=== PATIENT | male | born 1985 | race Caucasian/White ===

== ENCOUNTER 2019-12-01 12:31 | Outpatient (CLI) | payer OTHER, SELFPAY ==
--- NOTE | 2019-12-01 12:43 | MR_ITS ---
WS: [id number] MRI of the right knee, 12/01/2019 Clinical Data: CHRONIC PAIN RIGHT KNEE Comparison: None. Findings: The anterior and posterior cruciate ligaments are intact without tear. The medial and lateral meniscu s show no tears. There are no bone bruises present. There are no osteochondral fractures. The medial and lateral collateral ligaments are intact without strain or tear. The quadriceps tendon and patellar tendon show no abnormalities. The patella is intact without displacement or chondromalac ia. No Hurtado's cyst is seen. MR/MR knee RT wo con* [id number] Impression: 1. Negative for ligamentous or meniscal tears. 2. Negative for bone bruise or osteochondral fracture.
== END 2019-12-01 12:32 | disposition home or self-care (01) ==
LOC: RADSHAW 12:36
PROVIDERS: Family Provider Family Medicine; PCP Family Medicine; Visit Provider Specialist
DX: M25.561 Pain in right knee (principal)
CPT/HCPCS: 73721

== ENCOUNTER 2020-01-03 16:53 | Outpatient (RCR) | payer OTHER, SELFPAY | END 2020-01-20 23:59 | disposition home or self-care (01) | LOC: SPT 16:53 | PROVIDERS: Family Provider Family Medicine; PCP Family Medicine; Referring Provider Specialist; Visit Provider Specialist | DX: M25.561 Pain in right knee (principal) | CPT/HCPCS: 97110; 97161 ==

== ENCOUNTER 2020-01-21 06:00 | Outpatient (RCR) | payer OTHER, SELFPAY | END 2020-02-20 23:59 | disposition home or self-care (01) | LOC: SPT 06:00 | PROVIDERS: Family Provider Family Medicine; PCP Family Medicine; Referring Provider Specialist; Visit Provider Specialist | DX: M25.561 Pain in right knee (principal) | CPT/HCPCS: 97110 ==

== ENCOUNTER 2020-01-26 15:58 | Outpatient (CLI) | payer OTHER, SELFPAY ==
--- NOTE | 2020-01-26 16:45 | MRR_ITS ---
PROCEDURE INFORMATION: Exam: MR Head Without Contrast Exam date and time: 01/26/2020 5:59 PM Age: 34 years old Clinical indication: Other: Headaches; Additional info: Tbi TECHNIQUE: Imaging protocol: MR of the head without contrast. COMPARISON: No relevant prior studies available. FINDINGS: Brain: There is no evidence of an acute ischemic event. There is no evidence of a focal mass. There is no evidence of intracranial hemorrhage. No abnormal extra-axial fluid collections are identified. There is no evidence of a focal mass. No white matter signal abnormality is seen. The midbrain and [place] are normal. Midline posterior fossa arachnoid cyst incidentally noted. Ventricles: Normal. No ventriculomegaly. Sinuses: There is mild sinus mucosal disease, with no air-fluid level identified. Mastoid air cells: There is no mastoid effusion detected. Orbits: The orbits are normal. Sella: The pituitary gland and sella are normal. MR/MR head wo con* [id number] IMPRESSION: 1. No acute ischemia, mass, or white matter abnormality identified. 2. Mild sinus disease.
== END 2020-01-26 15:59 | disposition home or self-care (01) ==
LOC: RADSHAW 15:58
PROVIDERS: Family Provider Family Medicine; PCP Family Medicine; Visit Provider Specialist
DX: J32.9 Chronic sinusitis, unspecified (principal); Z87.820 Personal history of traumatic brain injury
CPT/HCPCS: 70551

== ENCOUNTER → 2020-04-10 15:17 | Outpatient (BNVA) | payer OTHER, SELFPAY | PROVIDERS: Family Provider Family Medicine; PCP Family Medicine; Visit Provider Specialist | DX: G47.419 Narcolepsy without cataplexy (principal); F07.81 Postconcussional syndrome; H53.19 Other subjective visual disturbances; G43.711 Chronic migraine without aura, intractable, with status migrainosus | CPT/HCPCS: 99214 ==

== ENCOUNTER → 2020-07-01 15:11 | Outpatient (BNVA) | payer OTHER, SELFPAY | PROVIDERS: Family Provider Family Medicine; PCP Family Medicine; Visit Provider Specialist | DX: F07.81 Postconcussional syndrome (principal); G47.429 Narcolepsy in conditions classified elsewhere without cataplexy; R29.90 Unspecified symptoms and signs involving the nervous system; M79.7 Fibromyalgia | CPT/HCPCS: 99214 ==

== ENCOUNTER 2020-11-11 20:00 | Outpatient (CLI) | payer OTHER, SELFPAY | END 2020-11-11 20:01 | disposition home or self-care (01) | LOC: SLEEP 11-12 08:55 | PROVIDERS: Family Provider Family Medicine; PCP Family Medicine; Visit Provider Family Medicine | DX: R06.83 Snoring (principal); R53.83 Other fatigue; G47.33 Obstructive sleep apnea (adult) (pediatric) | CPT/HCPCS: 95810 ==

== ENCOUNTER → 2020-12-25 09:35 | Outpatient (BNVA) | payer OTHER, SELFPAY | PROVIDERS: Family Provider Family Medicine; PCP Family Medicine; Visit Provider Specialist | DX: G47.429 Narcolepsy in conditions classified elsewhere without cataplexy (principal); M79.7 Fibromyalgia; M25.561 Pain in right knee; G89.29 Other chronic pain; E55.9 Vitamin D deficiency, unspecified | CPT/HCPCS: 99214 ==

== ENCOUNTER 2021-01-29 20:00 | Outpatient (CLI) | payer OTHER, SELFPAY | END 2021-01-29 20:01 | disposition home or self-care (01) | LOC: SLEEP 01-30 09:21 | PROVIDERS: Family Provider Family Medicine; PCP Family Medicine; Visit Provider Family Medicine | DX: G47.33 Obstructive sleep apnea (adult) (pediatric) (principal) | CPT/HCPCS: 95811 ==

== ENCOUNTER → 2021-07-01 08:03 | Outpatient (BNVA) | payer OTHER, SELFPAY | PROVIDERS: Family Provider Family Medicine; PCP Family Medicine; Visit Provider Specialist | DX: G47.429 Narcolepsy in conditions classified elsewhere without cataplexy (principal); G47.33 Obstructive sleep apnea (adult) (pediatric); M51.9 Unspecified thoracic, thoracolumbar and lumbosacral intervertebral disc disorder; Z87.891 Personal history of nicotine dependence | CPT/HCPCS: 99213; 99214 ==

== ENCOUNTER → 2021-09-25 10:54 | Outpatient (BNVA) | payer OTHER, SELFPAY | PROVIDERS: Family Provider Family Medicine; PCP Family Medicine; Visit Provider Specialist | DX: G47.33 Obstructive sleep apnea (adult) (pediatric) (principal); G47.429 Narcolepsy in conditions classified elsewhere without cataplexy; H53.19 Other subjective visual disturbances; F07.81 Postconcussional syndrome | CPT/HCPCS: 99214 ==

== ENCOUNTER → 2022-03-25 09:14 | Outpatient (BNVA) | payer OTHER, SELFPAY | PROVIDERS: Family Provider Family Medicine; PCP Family Medicine; Visit Provider Specialist | DX: G43.711 Chronic migraine without aura, intractable, with status migrainosus; H53.19 Other subjective visual disturbances; G47.33 Obstructive sleep apnea (adult) (pediatric); G47.429 Narcolepsy in conditions classified elsewhere without cataplexy | CPT/HCPCS: 99214 ==

== ENCOUNTER 2022-04-30 07:09 | Outpatient (CLI) | payer OTHER, SELFPAY ==
--- NOTE | 2022-04-30 07:15 | MR_ITS ---
WS: [id number] MRI HEAD WITHOUT CONTRAST TECHNIQUE: Sagittal T1, T2 axial, T2 axial FLAIR, axial and coronal T1 images, axial susceptibility w eighted imaging, axial diffusion weighted images, and coronal T2 images were obtained. CLINICAL INFORMATION: R51.9 - Headache, unspecified COMPARISON: February 15, 2020 FINDINGS: No evidence of restricted diffusion to suggest acute ischemia. Ventricular system and basal cisterns are patent. Normal mcnally-white differentiation. No suspicious intracranial signal abnormalities. Benig n incidental megacisterna magna. Normal vascular flow voids at the skull base. No extra axial fluid c ollections. No evidence of mass or mass effect. Mild mucosal thickening ethmoid air cells. Mastoid ai r cells are well aerated. No hemosiderin on susceptibly weighted images. Temporal lobes and hippocampal formations are normal i n appearance. Normal optic chiasm and pituitary infundibulum. Normal cavernous sinuses and Meckel's c ave. MR/MR head wo con* [id number] IMPRESSION: 1. No evidence of restricted diffusion to suggest acute ischemia. 2. No suspicious intracranial signal abnormalities. Normal mcnally-white differen tiation. 3. No hemosiderin on susceptibly weighted images. 4. Temporal lobes and hippocampal formations are normal in appearance. 5. No acute intracranial findings and no changes since May 11, 2020
== END 2022-04-30 07:10 | disposition home or self-care (01) ==
LOC: RAD 07:09
PROVIDERS: PCP Family Medicine; Visit Provider Specialist
DX: R51.9 Headache, unspecified (principal)
CPT/HCPCS: 70551

== ENCOUNTER 2023-04-16 09:39 | Emergency (ER) | payer OTHER, SELFPAY ==
[2023-04-16] VITALS (15 sets, daily range): BP systolic 108–142; BP diastolic 58–79; PULSE 65–66; RESP 16–18; TEMP 36.8; O2SAT 97–100; BMI 25.4
[2023-04-16 11:19] LABS: Basophils % 0.6 %; Eosinophils # 0.1 10^3/uL (0.0-0.8); Eosinophils % 1.7 %; Hematocrit 37.4 % (42.0-52.0); Lymphocytes # 1.1 10^3/uL (0.8-4.8); Lymphocytes % 31.4 %; Mean Corpuscular HGB Conc 34.8 g/dL (30.0-36.0); Mean Corpuscular Hemoglobin 30.8 pg (28.0-34.0); Mean Corpuscular Volume 88.6 fl (80-94); Mean Platelet Volume 9.5 fL (7.4-10.4); Monocytes # 0.3 10^3/uL (0.2-0.9); Monocytes % 7.8 %; Neutrophils # 2.08 10^3/uL (1.8-7.7); Neutrophils % 58.2 %; Nucleated Red Blood Cells % 0 %; Platelet Count 196 10^3/cmm (130-400); Red Blood Count 4.22 10^6/uL (4.1-5.3); Red Cell Distribution Width 12.1 % (12.1-15.1); White Blood Count 3.6 10^3/uL (4.0-10.0)
[2023-04-16 11:44] LABS: Alanine Aminotransferase 19 U/L (0-41); Albumin Level 4.4 g/dL (3.5-5.2); Alkaline Phosphatase 82 U/L (40-130); Anion Gap 12.7 (5-19); Aspartate Amino Transferase 17 U/L (0-40); Blood Urea Nitrogen 7 mg/dL (6-20); Calcium 8.8 mg/dL (8.5-10.5); Carbon Dioxide 29 mmol/L (22-29); Chloride 104 mmol/L (98-107); Glucose 73 mg/dL (65-115); Magnesium 2.1 mg/dL (1.7-2.3); Osmolality Calculated 291 mOsm/kg (285-295); Potassium 3.7 mmol/L (3.5-5.1); Sodium 142 mmol/L (136-145); Total Bilirubin 0.5 mg/dL (0.15-1.2); Total Protein 6.4 g/dL (6.6-8.7)
[2023-04-16] MEDS: sodium chloride 0.9% 1,000 ML 999 ML IV (12:10)
[2023-04-16 13:43] LABS: Add Urine Microscopic? NO; Charge for UA Resulting for Rev
[2023-04-16 14:07] LABS: Bilirubin Urine Neg (Negative); Blood Urine Neg (Negative); Glucose Urine UA Norm (Normal); Ketones Urine Negative (Negative); Leukocyte Esterase Urine Negative (Negative); Nitrate Urine Negative (Negative); Protein Urine Neg (Negative); Urine Appearance Clear (CLEAR); Urine Color Yellow (Yellow); Urobilinogen Urine Norm (Negative); pH Urine 6.5 (5-7)
--- NOTE | 2023-04-16 14:10 | ED_ITS ---
HPI - Nausea/Vomiting/Diarrhea General: Chief complaint: Nausea/Vomiting/Diarrhea Stated complaint: abd pain/N/V/D [facility] Time Seen by Provider: 04/16/23 11:45 Source: patient Mode of arrival: ambulatory Limitations: no limitations History of Present Illness: This 37-year-old male with a history of chronic migraine, fibromyalgia and obstructive sleep apnea presents to the ER with chronic diarrhea and intermittent vomiting that has been going on for about 6 months. Yesterday for instance, he had 7 bowel movements that were watery and not of large volumes. There is no blood in stool. He has already had 3 bowel movements today. He has vomiting that is sporadic. Patient has no fever, chest pain or shortness of breath. He reports that he has had an unintentional weight loss of 10 pounds in the last 2 weeks. Alert Associated nausea: Yes Associated symtoms: Reports nausea; Denies change in vision, chest pain, dysuria or headache(s) Review of Systems Const: Denies: chills, body aches or change in appetite Eyes: Denies: change in vision or eye discharge ENMT: Denies: throat pain or dental pain Card: Denies: chest pain or lightheadedness GI: Reports: nausea, vomiting (chronic) and diarrhea (chronic) : Denies: dysuria Musc: Denies: neck pain or back pain Neuro: Denies: headache(s) or weakness in extremities Psych: Denies: depression Dm/Lymph: Denies: easy bruising All/Imm: Denies: urticaria, tongue swelling or facial swelling PFSH ED PFSH: Social History Smoking and tobacco status: never smoked Alcohol intake: current Alcohol intake frequency: holidays/special occasions only Substance/Drug Use: never Physical Exam Const: COMMON NORMALS: no acute distress, patient oriented x3, no limitations and alert HENMT: COMMON NORMALS: normocephalic HEAD & SCALP: normocephalic Eye: COMMON NORMALS: EOMs intact bilaterally Neck/C-Spine: COMMON NORMALS: full ROM and supple Chest: COMMONS NORMALS: normal inspection of the chest Resp: COMMON NORMALS: normal respiratory effort, No retractions, No use of accessory muscles and clear to auscultation bilaterally AUSCULTATION: clear to auscultation bilaterally Cardio: COMMON NORMALS: regular rate, regular rhythm and No murmurs present (Cardio) RATE: regular rate RHYTHM: regular rhythm GI: COMMON NORMALS: Normal to inspection, nondistended, normoactive bowel sounds present and non-tender : COMMON NORMALS: Yes no CVA tenderness BLADDER/KIDNEY EXAM: Yes no CVA tenderness Back/Pelvis: COMMON NORMALS: no CVA tenderness and no thoracic nor lumbar tenderness Extremity: GENERAL: Yes normal exam except as noted Neuro: COMMON NORMALS: patient oriented x3 and no focal motor deficits S ENSORIUM/ORIENTATION: Yes alert Psych: COMMON NORMALS: mental status grossly normal and cooperative Course Reevaluation(s): Reevaluation #1: Patient remained stable throughout his stay. When I went in to discuss lab findings with patient, he told me that [facility] of the gallbladder. They want the ultrasound done. Time: 15:43 Vital Signs: Vital signs: Vital Signs Temperature 98.3 F 04/16/23 09:52 Pulse Rate 65 04/16/23 09:52 Respiratory Rate 18 04/16/23 12:43 Blood Pressure 117/77 04/16/23 18:00 Pulse Oximetry 97 04/16/23 17:30 Oxygen Delivery Me thod Room Air 04/16/23 12:43 MDM - Nausea/Vomiting/Diarrhea Medical Decision Making Medical decision making: Patient presents with chronic diarrhea and vomiting. On exam, he is clinically stable with an unremarkable exam. Completed blood tests including abdominal ultrasound are unremarkable too. Stool tests ordered. Patient will benefit from an outpatient colonoscopy which his primary care physician is in the process of setting up. He was advised to maintain adequate fluid intake and to follow-up with his primary care provider. Reasons to return were discussed. Lab Data 04/16/23 11:12 04/16/23 11:12 Radiology Impressions Abdomen Ultrasound 04/16/23 15:41 IMPRESSION: 1. No acute findings. 2. Negative liver examination. 3. Negative gallbladder examination Laboratory Results WBC 3.6 10^3/uL (4.0-10.0) L 04/16/23 11:12 RBC 4.22 10^6/uL (4.1-5.3) 04/16/23 11:12 Hgb 13.0 g/dL (11.7-16.6) 04/16/23 11:12 Hct 37.4 % (42.0-52.0) L 04/16/23 11:12 MCV 88.6 fl (80-94) 04/16/23 11:12 MCH 30.8 pg (28.0-34.0) 04/16/23 11:12 MCHC 34.8 g/dL (30.0-36.0) 04/16/23 11:12 RDW 12.1 % (12.1-15.1) 04/16/23 11:12 Plt Count 196 10^3/cmm (130-400) 04/16/23 11:12 MPV 9.5 fL (7.4-10.4) 04/16/23 11:12 Neut % (Auto) 58.2 % 04/16/23 11:12 Lymph % (Auto) 31.4 % 04/16/23 11:12 [place] % (Auto) 7.8 % 04/16/23 11:12 Eos % (Auto) 1.7 % 04/16/23 11:12 Baso % (Auto) 0.6 % 04/16/23 11:12 Neut # (Auto) 2.08 10^3/uL (1.8-7.7) 04/16/23 11:12 Lymph # (Auto) 1.1 10^3/uL (0.8-4.8) 04/16/23 11:12 [place] # (Auto) 0.3 10^3/uL (0.2-0.9) 04/16/23 11:12 Eos # (Auto) 0.1 10^3/uL (0.0-0.8) 04/16/23 11:12 Baso # (Auto) 0.0 10^3/uL (0.0-0.1) 04/16/23 11:12 Nucleated RBC % (auto) 0 % 04/16/23 11:12 Nucleated RBCs # 0.0 /100WBC 04/16/23 11:12 Sodium 142 mmol/L (136-145) 04/16/23 11:12 Potassium 3.7 mmol/L (3.5-5.1) 04/16/23 11:12 Chloride 104 mmol/L (98-107) 04/16/23 11:12 Carbon Dioxide 29 mmol/L (22-29) 04/16/23 11:12 Anion Gap 12.7 (5-19) 04/16/23 11:12 BUN 7 mg/dL (6-20) 04/16/23 11:12 Creatinine 0.8 mg/dL (0.7-1.2) 04/16/23 11:12 GFR Calculation 110.0 mL/min (90-130) 04/16/23 11:12 Glucose 73 mg/dL (65-115) 04/16/23 11:12 Calculated Osmolality 291 mOsm/kg (285-295) 04/16/23 11:12 Calcium 8.8 mg/dL (8.5-10.5) 04/16/23 11:12 Magnesium 2.1 mg/dL (1.7-2.3) 04/16/23 11:12 Total Bilirubin 0.5 mg/dL (0.15-1.2) 04/16/23 11:12 AST 17 U/L (0-40) 04/16/23 11:12 ALT 19 U/L (0-41) 04/16/23 11:12 Alkaline Phosphatase 82 U/L (40-130) 04/16/23 11:12 Total Protein 6.4 g/dL (6.6-8.7) L 04/16/23 11:12 Albumin 4.4 g/dL (3.5-5.2) 04/16/23 11:12 Globulin 2.0 g/dL (1.3-4.6) 04/16/23 11:12 Urine Color Yellow (Yellow) 04/16/23 13:38 Urine Appearance Clear (CLEAR) 04/16/23 13:38 Urine pH 6.5 (5-7) 04/16/23 13:38 Ur Specific Fabius 1.010 (1.005-1.030) 04/16/23 13:38 Urine Protein Neg (Negative) 04/16/23 13:38 Urine Glucose (UA) Norm (Normal) 04/16/23 13:38 Urine Ketones Negative (Negative) 04/16/23 13:38 Urine Blood Neg (Negative) 04/16/23 13:38 Urine Nitrate Negative (Negative) 04/16/23 13:38 Urine Bilirubin Neg (Negative) 04/16/23 13:38 Urine Urobilinogen Norm mg/dL (Negative) 04/16/23 13:38 Ur Leukocyte Esterase Negative (Negative) 04/16/23 13:38 Urine Opiates Screen Negative ng/mL (Negative) 04/16/23 13:38 Ur Barbiturates Screen Negative ng/mL (Negative) 04/16/23 13:38 Ur Phencyclidine Scrn Negative ng/mL (Negative) 04/16/23 13:38 Ur Amphetamines Screen Negative ng/mL (Negative) 04/16/23 13:38 U Benzodiazepines Scrn Negative ng/mL (Negative) 04/16/23 13:38 Urine Cocaine Screen Negative ng/mL (Negative) 04/16/23 13:38 U Marijuana (THC) Screen Positive ng/mL (Negative) H 04/16/23 13:38 Discharge Plan Discharge Patient Disposition: Home Clinical Impression: Chronic diarrhea Condition: Stable Prescriptions: No Action bupropion HCl 150 mg tablet extended release 24 hr 150 mg PO QAM cholecalciferol (vitamin D3) 250 mcg (10,000 unit) capsule 50,000 unit PO DAILY Qty: 8 0RF amitriptyline 25 mg tablet 25 mg PO DAILY Qty: 30 5RF modafinil [Provigil] 200 mg tablet 400 mg PO ONCE Qty: 120 5RF Rx Instructions: 400 mg in the morning. 90 day supply with one refill ok Discharge Orders: Discharge ED (Routine); Ordered 04/16/23 Ordered By: Brisa Stiles Referrals: Celeste Mane MD [Primary Care Provider] - Discharge Diet: Usual diet Discharge Activity: Resume usual activity Patient Instructions: Opioid Safety, Pain Management Activity Restrictions/Additional Instructions: You may take [id number] Imodium as needed for diarrhea. Maintain adequate fluid intake. Follow-up with your primary care provider who will set you up for an outpatient colonoscopy. Return with new or worsening symptoms. 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
[2023-04-16 14:25] LABS: Amphetamines Screen Urine Negative (Negative); Barbiturates Screen Urine Negative (Negative); Benzodiazepines Screen Urine Negative (Negative); Cocaine Screen Urine Negative (Negative); Opiate Screen Urine Negative (Negative); PCP Screen Urine Negative (Negative); THC Screen Urine Positive (Negative)
--- NOTE | 2023-04-16 15:41 | USR_ITS ---
PROCEDURE INFORMATION: Exam: US Abdomen Complete Exam date and time: 04/16/2023 4:20 PM Age: 37 years old Clinical indication: Abnormal findings; Abnormal radiologic finding of the abdomen; Radiologic exam and body structure: CT; Additional info: Chronic diarrhea. Assess liver and gall bladder TECHNIQUE: Imaging protocol: Real-time ultrasound of the abdomen with image documentation. Complete exam. COMPARISON: CT lumbar spine w con [id number] 08/10/2017 10:02 AM FINDINGS: Liver: Normal. No mass. Liver span is 16 cm Gallbladder: Normal. No gallstones. There is no gallbladder wall thickening. Biliary ducts: Normal. No stones. No dilation. 3.8 mm Pancreas: Visualized pancreas is unremarkable. Right kidney: Normal. No mass. No hydronephrosis. 12.4 cm x 5 cm x 5.6 cm Left kidney: Normal. No mass. No hydronephrosis. 12.4 cm x 4.8 cm x 5.5 cm Spleen: Normal. No splenomegaly. 11.49 cm Aorta: Normal. No aneurysm. Inferior vena cava: Normal. US/US abdomen complete* [id number] IMPRESSION: 1. No acute findings. 2. Negative liver examination. 3. Negative gallbladder examination
[2023-04-20 14:34] LABS: Lyme AB Screen <0.90 index
[2023-04-21 13:04] LABS: Clostridium Difficile PCR NOT DETECTED (NOT DETECTED)
[2023-04-21 19:09] LABS: RMSF IGG NOT DETECTED; RMSF IGM NOT DETECTED
[2023-04-24 21:09] LABS: E. Chaffeensis AB IGG <1:64; E. Chaffeensis AB IGM <1:20
[2023-04-29 11:50] LABS: Miscellaneous Test SEE COMMENTS
== END 2023-04-16 18:43 | disposition home or self-care (01) ==
PROVIDERS: Emergency Medicine; Emergency Provider Family Medicine; PCP Family Medicine
DX: K52.9 Noninfective gastroenteritis and colitis, unspecified (principal)
CPT/HCPCS: 76700; 80053; 80306; 81003; 83735; 85025; 86618; 86666; 86757; 87045; 87177; 87209; 87427; 87449; 87493; 87506; 96360; 99284; J7030

== ENCOUNTER 2023-05-21 07:51 | Outpatient (CLI) | payer OTHER, SELFPAY ==
--- NOTE | 2023-05-21 07:57 | NM_ITS ---
WS: [id number] NUCLEAR MEDICINE HIDA SCAN WITH GALLBLADDER EJECTION FRACTION HISTORY: Epigastric ABDOMINAL PAIN AND DIARRHEA COMPARISON: 04/16/2023 TECHNIQUE: The patient was intravenously injected with 7.8 mCi of TC99m Mebrofenin. Immediate imaging over the right upper quadrant was followed by 5 minute image and additional images for a total of 60 minutes. Normal uptake of radiotracer throughout the liver. Activity identified in the gallbladder at 15 minutes and well distended by 60 minutes. Activity in the proximal small bowel was seen by 20 minutes. Good washout of the radiotracer from the liver by 60 minutes. The patient then drank 8 ounces of Ensure Plus. Ejection fraction at 60 minutes was 87%. Normal GB ej ection fraction is 35-75%. Post fatty meal symptoms: None. NM/NM hepatobiliary w phar* [id number] IMPRESSION: 1. Normal HIDA scan. 2. Normal gallbladder ejection fraction.
== END 2023-05-21 07:52 | disposition home or self-care (01) ==
LOC: RAD 07:52
PROVIDERS: PCP Family Medicine; Visit Provider Family Medicine
DX: R19.7 Diarrhea, unspecified (principal); R10.13 Epigastric pain
CPT/HCPCS: 78227; A9537

== ENCOUNTER → 2023-08-23 08:21 | Outpatient (BNVA) | payer OTHER, BC, SELFPAY | PROVIDERS: PCP Family Medicine; Referring Provider Family Medicine; Visit Provider Specialist | DX: G47.429 Narcolepsy in conditions classified elsewhere without cataplexy (principal); R29.90 Unspecified symptoms and signs involving the nervous system; F07.81 Postconcussional syndrome | CPT/HCPCS: 99213; 99214 ==

== ENCOUNTER → 2024-07-04 14:29 | Outpatient (BNVA) | payer OTHER, SELFPAY | PROVIDERS: PCP Family Medicine; Referring Provider Family Medicine; Visit Provider Specialist | DX: G43.711 Chronic migraine without aura, intractable, with status migrainosus (principal); F07.81 Postconcussional syndrome; R29.90 Unspecified symptoms and signs involving the nervous system; G47.429 Narcolepsy in conditions classified elsewhere without cataplexy; G44.52 New daily persistent headache (NDPH) | CPT/HCPCS: 99214 ==

== ENCOUNTER 2024-08-01 07:57 | Outpatient (CLI) | payer OTHER, SELFPAY ==
--- NOTE | 2024-08-01 08:00 | MR_ITS ---
WS: [id number] MRI CERVICAL SPINE NONCONTRAST HISTORY: PAIN IN THE NECK SHOULDER COMPARISON: None available. Technique: Multiplanar, multisequence noncontrast imaging of the cervical spine. Normal cervical alignment with no compression fracture or significant disc space narrowing. Signal within the cervical cord is normal. Visualized posterior fossa is unremarkable. Craniocervical junction, C1 and C2 relationship, odontoid process and soft tissues are normal. C2-C3: Normal. C3-C4: Mild osteophytic ridging and mild facet arthritis. Mild LEFT foraminal stenosis. C4-C5: Mild disc bulging and osteophytic ridging. Very slight narrowing of the foramina. No high-grad e stenosis. C5-C6: Mild annular disc bulge with a central disc protrusion and annular fissure. Effacement of CSF. Small foraminal osteophytes. Very mild central stenosis. C6-C7: Diffuse annular disc bulging with osteophytic ridging. Mild central with mild to moderate bila teral foraminal stenosis. C7-T1: Normal. Paraspinal soft tissue are normal. MR/MR cervical spin wo con* [id number] IMPRESSION: 1. No high-grade central or foraminal stenosis. 2. No signal abnormality in the cord. 3. C6-7: Mild central with mild to moderate bilateral foraminal stenosis predo minately due to osteophyte disease. 4. C5-6: Central disc protrusion with annular fissure. Mild central stenosis. 5. C3-4: Mild LEFT foraminal stenosis. 6. C4-5: Very mild bilateral foraminal stenosis.
--- NOTE | 2024-08-01 08:30 | MR_ITS ---
WS: [id number] MRI BRAIN WITHOUT CONTRAST HISTORY: G43.711 - Chronic migraine without aura, intractable, wit... COMPARISON: 04/30/2022 TECHNIQUE: Diffusion imaging, multiplanar T1, T2 and FLAIR imaging obtained. No evidence for acute infarct or hemorrhage. Veras-white matter differentiation is normal. Normal angelina ocampal formations. No FLAIR or T2 signal hyperintensities. No remote or acute infarcts are volume loss. Ventricles and extra-axial spaces are normal. No inferior displacement of cerebellar tonsils. The sella turcica and pituitary gland are unremarkabl e. Incidental note is made of lamberto cisterna magna. Dural venous sinuses and [place] demonstrate no abnormality on this unenhanced studies. Paranasal sinuses: Small mucous retention cyst in the anterior RIGHT maxillary sinus measures 11 mm. No air-fluid levels. Mastoid air cells: Normal. Calvarium and scalp: Intact. MR/MR head wo con* [id number] IMPRESSION: 1. No acute infarct or prior infarct. 2. Normal hippocampal formations. 3. Stable MRI head since 04/30/2022. 4. No intracranial hemorrhage.
--- NOTE | 2024-08-01 10:00 | MR_ITS ---
WS: [id number] MRA ANGIOGRAPHY [place] HISTORY: R51.9 - Headache, unspecified COMPARISON: None available. TECHNIQUE: 3-D MR angiography is performed of the [place]. All images are reviewed including source images. Distal vertebral and basilar arteries are intact with no significant stenosis or plaque. LEFT vertebr al artery is dominant. Posterior cerebral arteries are normal course and caliber. Persistent ci rculation LEFT posterior cerebral artery. Posterior communicating arteries are both patent. Intracranial portion of the internal carotid arteries are normal course and caliber. No significant a therosclerosis, stenosis or aneurysm identified. Middle and anterior cerebral arteries are both paten t with no significant disease. Anterior communicating artery is also normal. MR/MR angio head wo con [id number] IMPRESSION: 1. Unremarkable MR angiogram [place]. 2. No cerebral aneurysms. 3. No occlusions. No significant atherosclerotic disease.
== END 2024-08-01 07:58 | disposition home or self-care (01) ==
LOC: RAD 07:57
PROVIDERS: PCP Nurse Practitioner Family; Visit Provider Nurse Practitioner Family
DX: G43.711 Chronic migraine without aura, intractable, with status migrainosus (principal); J34.1 Cyst and mucocele of nose and nasal sinus; M25.78 Osteophyte, vertebrae; M99.61 Osseous and subluxation stenosis of intervertebral foramina of cervical region
CPT/HCPCS: 70544; 70551; 72141

== ENCOUNTER → 2024-09-06 15:14 | Outpatient (BNVA) | payer OTHER, SELFPAY | PROVIDERS: PCP Nurse Practitioner Family; Visit Provider Specialist | DX: G43.711 Chronic migraine without aura, intractable, with status migrainosus (principal); F07.81 Postconcussional syndrome; G47.429 Narcolepsy in conditions classified elsewhere without cataplexy; R29.90 Unspecified symptoms and signs involving the nervous system; G44.52 New daily persistent headache (NDPH); R03.0 Elevated blood-pressure reading, without diagnosis of hypertension | CPT/HCPCS: 99214 ==

== ENCOUNTER → 2024-12-07 11:32 | Outpatient (BNVA) | payer OTHER, SELFPAY | PROVIDERS: PCP Nurse Practitioner Family; Visit Provider Specialist | DX: G47.419 Narcolepsy without cataplexy; R03.0 Elevated blood-pressure reading, without diagnosis of hypertension | CPT/HCPCS: 99214 ==

== ENCOUNTER 2025-10-01 16:11 | Emergency (ER) | payer OTHER, SELFPAY ==
--- OUTSIDE RECORDS SUMMARY | 2025-10-01 16:18 | XMS_ITS | Clinical Summary ---
Author Organization [email or web address] [facility] Address [address] [place]: Epic Prelude ADT E[place] ESQU[place]EL [id number] Care Team Providers Care Time Analysis Clerk Name Role Phone Unavailable Primary Care Provider Unavailabl e Immunizations Immunization Administration Dates Next Due (M-M-R II/PRIORIX)(12 MO UP) MEASLES, MUMPS AND RUBELLA VIRUS VACCINE, 0.5 ML IM/SUBCUT 02/22/1997 Dt Dtp Dtap Vaccine 08/07/1992 HIB, Unspecified Formulation 08/06/1992 Hepatitis B Vaccine 03/18/2000,11/27/1999,1998 IPV/OPV 08/06/1992 Social History Tobacco Use Types Packs/Day Years Used Date Smoking Tobacco: Never Assessed Sex and Gender Information Value Date Recorded Sex Assigned at Not on file Legal Sex 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
--- OUTSIDE RECORDS SUMMARY | 2025-10-01 16:18 | XMS_ITS | Data Portability ---
Author Organization [facility] Dexter Rebollar [facility] Aysha, [facility] Address [address] [place] [id number] Assessment No assessment recorded. Plan of Treatment Reminders Order Date Submit Date Provider Last Modified By Organization Details Last Modified Time Details Appointments None recorded . Lab HbA1c (hemoglo bin A1c), blood 10/04/20 [facility] ([facility]), [address] [place], [address], 4 09:39:09 TSH, serum or plasma 10/04/20 [facility] ([facility]), [address] [place], [address], 4 17:27:58 CMP, serum or plasma 10/04/20 [facility], [address], [place], [address], 4 17:32:19 lipid panel, blood 10/04/20 [facility], [address], [address], [place], [address], 4 17:32:22 CBC 10/04/20 [facility], [address], [address], [address], 4 17:24:55 Referral None recorded . Procedures None recorded . Surgeries None recorded . Imaging None recorded . Medication Orders None recorded . Patient TargetsNo targets recorded. Patient InstructionsNo instructions recorded. Reason for Referral None Reported. Results Created Date Observation Date Name Description Value Unit Range Abnormal Flag Note LastModifiedBy Organization Detail LastModifiedTime 10/04/2010/04/2024 CBC WBC 5.8 x10 4.5-10 .5 Not Available [facility] [address] [facility], [place], [address], 10/04/2024 17:24:55 10/04/2010/04/2024 CBC RBC 4.36 x10 4.30-5 .90 Not Available [facility] [address] [facility] 1, [place], [address], 10/04/2024 17:24:55 10/04/20 24 10/04/2024 CBC HGB 14.0 g/dL 13.5-1 8.0 Not Available [facility] [address] [facility] 1, [place], [address], 10/04/2024 17:24:55 10/04/2010/04/2024 CBC HCT 38.6 % 35.0-6 0.0 Not Available [facility] [address] [facility] 1, [place], [address], 10/04/2024 17:24:55 10/04/2010/04/2024 CBC MCV 88.5 fL 80.0-9 9.9 Not Available [facility] [address] [facility] 1, [place], [address], 10/04/2024 17:24:55 10/04/2010/04/2024 CBC MCH 32.0 pg 27.0-3 2.0 Not Available [facility] [address] [facility] 1, [place], [address], 10/04/2024 17:24:55 10/04/2015 1010/04/2024 CBC MCHC 36.1 g/dL 32.0-3 6.0 high Not Available [facility] [address] [facility] [place], [address], 10/04/2024 17:24:55 10/04/20 24 10/04/2024 CBC RDW 12.8 % 11.5-1 4.5 Not Available [facility] [address] [facility] [place], [address], 10/04/2024 17:24:55 10/04/2010/04/2024 CBC plt 199.1 x10 150.0- 451.0 Not Available [facility] [address] [facility], [place], [address], 10/04/2024 17:24:55 10/04/20 24 10/04/2024 CBC lymphocytes % 24.7 % 20.0-5 0.0 Not Available [facility] [address] [facility], [place], [address], 10/04/2024 17:24:55 10/04/20 24 10/04/2024 CBC granulcytes % 70.4 % 30.0-7 0.0 high Not Available [facility] [address] [facility] [address], [place], [address], 10/04/2024 17:24:55 10/04/20 24 10/04/2024 CBC monocytes % 4.1 % 2.0-16 .0 Not Available [facility] [address] [facility], [place], [address], 10/04/2024 17:24:55 10/04/20 24 10/04/2024 CBC granulcytes# 4.1 x10 Not Sabina ilable [facility] [address] [facility], [place], [address], 10/04/2024 17:24:55 10/04/20 24 10/04/2024 CBC lymphocytes # 1.4 x10 Not Available [facility] [address] [facility], [place], [address], 10/04/2024 17:24:55 10/04/20 24 10/04/2024 CBC monocytes # 0.2 x10 Not [facility] [address] [address], [place], [address], 10/04/2024 17:24:55 10/04/20 24 10/04/2024 CMP (MALE ) glucose 145.0 mg/dL 60.0-9 9.0 high Not Available [facility] [address] [address], [place], [address], 10/04/2024 17:32:19 10/04/20 24 10/04/2024 CMP (MALE ) BUN (blood urea nitrogen) 16.0 mg/dL 10.0-2 6.0 Not Available [facility] [address] [address], [place], [address], 10/04/2024 17:32:19 10/04/20 24 10/04/2024 CMP (MALE ) creatinine (serum) 0.9 mg/dL 0.4-1. 5 Not Available [facility] [address] [address], [place], [address], 10/04/2024 17:32:19 10/04/20 24 10/04/2024 CMP (MALE ) BUN/creatini ne ratio 17.02 ratio Not Available [facility] [address] [address], [place], [address], 10/04/2024 17:32:19 10/04/20 24 10/04/2024 CMP (MALE ) eGFR calculated 96.0 Not Available [facility] [address] [facility], [place], [address], 10/04/2024 17:32:19 10/04/20 24 10/04/2024 CMP (MALE ) total protein 7.1 g/dL 6.0-8. 5 Not Available [facility] [address] [facility], [place], [address], 10/04/2024 17:32:19 10/04/20 24 10/04/2024 CMP (MALE ) total bilirubin 0.9 mg/dL 0.2-1. 3 Not Available [facility] [address] [facility] Dasha [facility] 1, [place], [address], 10/04/2024 17:32:19 10/04/20 24 10/04/2024 CMP (MALE ) albumin 4.9 g/dL 3.5-5. 5 Not Available [facility] [address] [facility], [place], [address], 10/04/2024 17:32:19 10/04/20 24 10/04/2024 CMP (MALE ) globulin 2.2 calc Not Available [facility] [address] [facility], [place], [address], 10/04/2024 17:32:19 10/04/20 24 10/04/2024 CMP (MALE ) AST (SGOT) 27.0 U/L 0.0-46 .0 Not Available [facility] [facility], [place], [address], 10/04/2024 17:32:19 10/04/20 24 10/04/2024 CMP (MALE ) altv (SGPT) 26.0 U/L 13.0-6 9.0 normal Not Available [facility] [address] [facility] Dasha [facility] 1, [place], [address], 10/04/2024 17:32:19 10/04/20 24 10/04/2024 CMP (MALE ) A/G ratio 2.2 ratio Not Available [facility] [address] [facility] [address], [place], [address], 10/04/2024 17:32:19 10/04/20 24 10/04/2024 CMP (MALE ) ALP phos 64.0 U/L 30.0-1 40.0 normal Not Available [facility] [address] [facility] [facility], [place], [address], 10/04/2024 17:32:19 10/04/20 24 10/04/2024 CMP (MALE ) calcium 9.8 mg/dL 8.4-10 .5 Not Available [facility] [address] [facility] [address], [place], [address], 10/04/2024 17:32:19 10/04/20 24 10/04/2024 CMP (MALE ) sodium 138.0 mmol/ L 136.0- 145.0 Not Available [facility] [address] [facility] [address], [place], [address], 10/04/2024 17:32:19 10/04/20 24 10/04/2024 CMP (MALE ) potassium 4.1 mmol/ L 3.5-5. 1 Not Available [facility] [address] [facility] [address], [place], [address], 10/04/2024 17:32:19 10/04/20 24 10/04/2024 CMP (MALE ) chloride 100.0 mmol/ L 98.0-1 10.0 normal Not Available [facility] [address] [facility] [address], [place], [address], 10/04/2024 17:32:19 10/04/20 24 10/04/2024 CMP (MALE ) C02 29.0 mmol/ L 22.0-3 1.0 Not Available [facility] [address], [place], [address], 10/04/2024 17:32:19 10/04/20 24 10/04/2024 CMP (MALE ) anion gap 9.0 calc Not Available [facility] [address], [place], [address], 10/04/2024 17:32:19 10/04/20 24 10/04/2024 CMP (MALE ) osmolality 288.6 calc Not Available [facility] [address] [facility] [address], [place], [address], 10/04/2024 17:32:19 10/04/20 24 10/04/2024 LIPID PROFI LE (MALE ) cholesterol 210.0 mg/dL 0.0-20 0.0 high Not Available [facility] [address] [facility] 1, [place], [address], 10/04/2024 17:32:22 10/04/20 24 10/04/2024 LIPID PROFI LE (MALE ) trig 89.0 mg/dL 0.0-15 0.0 Not Available [facility] [address] [facility] [address] [facility] 1, [place], [address], 10/04/2024 17:32:22 10/04/20 24 10/04/2024 LIPID PROFI LE (MALE ) HDL - direct 64.0 mg/dL >40.0 Not Available [facility] [address], [place], [address], 10/04/2024 17:32:22 10/04/20 24 10/04/2024 LIPID PROFI LE (MALE ) VLDL - direct 17.8 mg/dL Not Available [facility] [address] [facility] 1, [place], [address], 10/04/2024 17:32:22 10/04/20 24 10/04/2024 LIPID PROFI LE (MALE ) LDL - direct 128.2 mg/dL 0.0-13 0.0 Not Available [facility] [address] [facility], [place], [address], 10/04/2024 17:32:22 10/04/20 24 10/04/2024 TSH, serum or plasm a TSH 0.57 uIU/m L 0.49-3 .82 normal Not Available [facility] ([facility]) [address] [place], [address], 10/04/2024 17:11:12 10/05/20 24 10/05/2024 HbA1c (hemo globi n A1c), blood HbA1c 4.8 Not Available [facility] ([facility]) [address] [place], [address], 10/04/2024 17:11:11 Result Notes None recorded. Medical Equipment None Reported. Medications Name Sig Start Date Stop Date Status Note LastModified by Organization Details LastModified Time cyclobenza ayanna 10 mg tablet TAKE 1 TABLET BY MOUTH THREE TIMES DAILY NEEDED FOR NECK AND SHOULDER PAIN active Not Available Not Available No t Available trazodone 50 mg tablet take 1/2 tablet BY MOUTH AT BEDTIME active Not Available Not Available No t Available meloxicam 15 mg tablet TAKE 1 TABLET BY MOUTH EVERY DAY active Not Available Not Available No t Available modafinil 200 mg tablet QD active Not Available Not Available Not Available pantoprazo le 40 mg tablet,del ayed release TAKE 1 TABLET BY MOUTH EVERY MORNING BEFORE MEAL active Not Available Not Available No t Available fluoxetine 10 mg capsule TAKE 3 CAPSULES BY MOUTH EVERY DAY active Not Available Not Available No t Available folic acid 1 mg tablet active Not Available Not Available Not Available hydroxyzin e HCl 25 mg tablet TAKE 1 TABLET BY MOUTH THREE TIMES DAILY NEEDED FOR ANXIETY active Not Available Not Available No t Available amoxicilli n 875 mg-potassi um clavulanat e 125 mg tablet TAKE 1 TABLET BY MOUTH TWICE DAILY for 5 days active Not Available Not Available No t Available ciprofloxa arleth 0.3 %-dexameth asone 0.1 % ear drops,susp ension INSTILL FOUR DROPS IN EACH EAR TWICE DAILY for 5 days active Not Available Not Available No t Available ibuprofen active 0; Recorded 0 9:28AM by Tanesha Cuevas, Office Visit; Not Available Not Available Not Available Vitamin D active 0; Recorded 0 9:28AM by Tanesha Cuevas, Office Visit; Not Available Not Available Not Available bupropion HCl active 0; Recorded 0 9:28AM by Tanesha Cuevas, Office Visit; Not Available Not Available Not Available Vitals Date Recorded Body height Body mass index (BMI) Body weight Oxygen saturation Oxygen saturation in Arterial blood by Pulse oximetry Heart rate Systolic And Diastolic Provider Name and Address Organization Details Last Updated DateTime 4 179.07 cm 32.1 kg/m2 910408. 47 g 99 % 99 % 84 /min 152/74 mm[Hg] DUSTY PHILIPPE [facility] 4 15:11:51 Social History None recorded. Functional Status None recorded. Mental Status None recorded. Family History Nothing Reported. Medical History No medical history recorded. Past Encounters Encounter ID Performer Location Encounter Start Date Encounter Closed Date Diagnosis/Indication Diagnosis SNOMED-CT Code Diagnosis ICD10 Code Diagnosis IMO Codes Diagnosis Note [id number] Vishnu Wade MD [facility] ([facility]) [address] [place] [address] 10/04/2024 16:54:13 10/04/2024 16:55:42 Adult health examination 995026093 Z00.00 [id number] AMISH CASTILLO [facility] ([facility]) [address] [place] [address] 10/05/2024 14:48:07 10/09/2024 15:35:00 Health Concerns Section Related Observation LastModified by Organization Yesikaai maite LastModified Time None Recorded Concern Status LastModified by Organization Details LastModified Time None Recorded Advance Directives Directive None Recorded Payers Insurance Date Sequence Insurance Name Policy Number Policy Dorsey Covered Member ID Dorsey Member ID Guarantor Name 10/04/2024 1 *SELF PAY* Joel Crane
--- OUTSIDE RECORDS SUMMARY | 2025-10-01 16:18 | XMS_ITS | Clinical Summary ---
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 07/16/2023 Active folic acid (FOLVITE) 1 mg tablet 1 mg. 03/16/2025 Active modafiniL (PROVIGIL) 200 mg Tablet Take 400 mg by mouth daily. Active nicotine (NICODERM CQ) 21 mg/24 hr patch 1 Patch. 03/14/2025 Acti ve nicotine polacrilex (NICORETTE) 4 mg Gum 4 mg. 03/16/2025 Active pantoprazole (PROTONIX) 40 mg Tablet, Delayed Release (E.C.) Take 40 mg by mouth daily. 05/11/2023 Active cholecalciferol, vitamin D3, 5,000 unit Take 400 Units by mouth daily. Active sennosides-docus ate sodium (SENNA-S) 8.6-50 mg tablet Take 1 Tablet by mouth daily. Active ARIPiprazole (ABILIFY) 10 mg tablet Take 10 mg by mouth daily. Active propranolol (INDERAL) 1 mg/mL Suspension Take by mouth. Active IBUPROFEN ORAL Take by mouth. 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 Gender Identity Not on file Sexual Orientation Not on file Last Filed Vital Signs Vital Sign Reading Time Taken Comments Blood Pressure 105/66 05/08/2025 10:24 AM CDT Pulse 69 05/08/2025 10:24 AM CDT Temperature - - Respiratory Rate - - Oxygen Saturation - - Inhaled Oxygen Concentration - - Weight 94.8 kg (209 lb) 05/08/2025 10:24 AM CDT Height 182.9 cm (6') 05/08/2025 10:24 AM CDT Body Mass Index 28.35 05/08/2025 10:24 AM CDT Plan of Treatment Health Maintenance Due Date Last Done Comments Pre-Diabetes and Diabetes Screening 1987 HPV VACCINES (1 - 3-dose SCD M series) 2014 DTAP/TDAP/TD VACCINES (6 - Tdap) 06/14/2015 06/13/2015, 08/07/1992, 08/07/1992, Additional history exists INFLUENZA VACCINE (#1) 2025 COVID-19 Vaccine (4 - 2024-2 6 season) 2025 06/13/2021, 05/16/2021, 12/20/2020 HEPATITIS B VACCINES Completed 03/18/2000, 03/18/2000, 11/27/1999, Additional history exists Insurance [place] [address] [employer]
--- OUTSIDE RECORDS SUMMARY | 2025-10-01 16:18 | XMS_ITS | Encounter Summary ---
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 Name Role Phone Unavailable Primary Care Provider Unavailabl e Encounter Details Date Type Department Care Team (Latest Contact Info) Description 07/02/2003 Outpatient Historical [facility] GENERAL SURGERY Yaron, Bahman Sun MD [address] [address] SURGERY FOLLOWUP, UNSPEC (Primary Dx) Social History Tobacco Use Types Packs/Day Years Used Date Smoking Tobacco: Never Assessed Sex and Gender Information Value Date Recorded Sex Assigned at Not on file Legal Sex Male 3:22 AM [facility] 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
--- OUTSIDE RECORDS SUMMARY | 2025-10-01 16:18 | XMS_ITS | Clinical Summary ---
Author Organization [facility] Address [address] 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 Role Phone System, Pcp Not In Primary Care Provider [phone] Allergies No known active allergies Medications modafiniL (PROVIGIL) 200 MG tablet Take two tablets (400 mg total) by mouth one (1) time a day Active buPROPion (WELLBUTRIN XL) 150 MG 24 hr tablet Take one tablet (150 mg total) by mouth one (1) time a day Active acetaminophen (TYLENOL) 500 MG tablet Take one tablet (500 mg total) by mouth every 6 (six) hours as needed for pain Active pantoprazole (PROTONIX) [address] tablet Take one tablet (40 mg total) by mouth one (1) time a day 30 tablet 3 05/11/2023 Active FLUoxetine (PROZAC) 20 MG capsule Take one capsule (20 mg total) by mouth one (1) time a day 07/16/2023 Active Active Problems Problem Noted Date Diagnosed Date Biliary colic 06/28/2023 Abdominal pain, epigastric 05/05/2023 GERD (gastroesophageal reflux disease) 3 Social History Tobacco Use Types Packs/Day Years Used Date Smoking Tobacco: Former Cigarettes 0 Q uit: 2011 Smokeless Tobacco: Current Last attempted to quit: 2020 Tobacco Cessation:Ready to Q uit: Not Asked; Counseling Given: Not Answered Comments:Uses pouches Alcohol Use Standard Drinks/Week Comments Not Currently 0 (1 standard drink = 0.6 oz pur e alcohol) Sex and Gender Information Value Date Recorded Sex Assigned at Male 07/12/2023 6:20 PM CDT Legal Sex Male 10:28 AM CDT Gender Identity Male 07/12/2023 6:20 PM CDT Sexual Orientation Straight 07/12/2023 6: 20 PM CDT Last Filed Vital Signs Vital Sign Reading Time Taken Comments Blood Pressure 141/89 07/05/2023 1:45 PM CDT Pulse 105 09/02/2023 12:51 PM CDT Temperature 37 C (98.6 F) 07/05/2023 1:17 PM CDT Respiratory Rate 16 07/05/2023 1:45 PM CDT Oxygen Saturation 98% 09/02/2023 12:51 PM CDT Inhaled Oxygen Concentration - - Weight 88.7 kg (195 lb 9.6 oz) 09/02/2023 12:51 PM CDT Height 182.9 cm (6') 09/02/2023 12:51 PM CDT Body Mass Index 26.53 09/02/2023 12:51 PM CDT Plan of Treatment Health Maintenance Due Date Last Done Comments Annual Depression Screening 1998 Annual Physical 2005 Hepatitis C Antibody Screen 2005 DTap/Tdap/Td Vaccines (2 - Tdap) 2006 08/07/19 92 Flu Vaccine (#1) 07/23/2025 Influenza Vaccine 07/23/2025 Additional Health Concerns Infection Onset Date Last Indicated C.Difficile (Rule Out) 05/11/2023 3 Insurance [facility] [employer] Advance Directives For more information, please contact: [phone] (7AM - 5PM [facility], 7 days a week) * Full Code (Latest Code Status on File) Date Activated Date Inactivated Comments 07/05/2023 10:07 AM 07/05/2023 6:12 PM * Full Code Date Activated Date Inactivated Comments 05/11/2023 9:55 AM 05/11/2023 3:41 PM Care Teams 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
[2025-10-01 16:19] VITALS: BP 134/83; PULSE 73; TEMP 36.7; O2SAT 99; BMI 26.4
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
[2025-10-01 17:33] VITALS: BP 117/68; PULSE 68; O2SAT 99
== END 2025-10-01 17:35 | disposition home or self-care (01) ==
PROVIDERS: Emergency Provider Emergency Medicine; PCP Nurse Practitioner Family
DX: S16.1XXA Strain of muscle, fascia and tendon at neck level, initial encounter (principal); S46.912A Strain of unspecified muscle, fascia and tendon at shoulder and upper arm level, left arm, initial encounter; V89.2XXA Person injured in unspecified motor-vehicle accident, traffic, initial encounter
CPT/HCPCS: 70450; 72125; 72128; 73030; 99284